=== PATIENT | female | born 1950 | race Caucasian/White ===

== ENCOUNTER 2019-02-23 09:18 | Inpatient (IN) | payer MEDICARE, OTHER ==
[~2019-02-23] VITALS: Ht 162.6 cm; Wt 104.7 kg
[2019-02-23] MEDS ORDERED: METF-960 PO (09:26)
[2019-02-23] MEDS ORDERED: FURO40 PO ×2 (09:26→15:04)
[2019-02-23] MEDS ORDERED: LOSA50TA64 PO (09:26)
[2019-02-23 09:40] LABS: GLUCOSE,POINT OF CARE 123 MG/DL (70-110)
[2019-02-23 10:38] LABS: BASOPHILS % (AUTO) 0.5 % (0.0-2.0); EOSINOPHILS % (AUTO) 6.2 % (1.0-6.0); HEMATOCRIT 35.1 % (36-46); HEMOGLOBIN 11.7 g/dL (12.0-16.0); LYMPHOCYTES # (AUTO) 1.4 K/uL (1.0-4.8); LYMPHOCYTES % (AUTO) 14.2 % (22.0-44.0); MEAN CORPUSCULAR HEMOGLOBIN 28.9 pg (26.0-34.0); MEAN CORPUSCULAR HGB CONC 33.3 G/dL (31.0-37.0); MEAN CORPUSCULAR VOLUME 87 fL (80-100); MONOCYTES # (AUTO) 0.7 K/uL (0.1-1.0); NEUTROPHILS # (AUTO) 6.9 K/uL (1.8-7.7); NEUTROPHILS % (AUTO) 72.1 % (40.0-70.0); PLATELET COUNT (AUTO) 266 K/uL (150-450); RED BLOOD CELL COUNT(AUTO) 4.04 MIL/uL (4.00-5.20); RED CELL DISTRIBUTION WIDTH 14.1 % (11.5-14.5)
[2019-02-23 10:49] LABS: CALCIUM, TOTAL 9.6 mg/dL (8.8-10.5); CREATININE 1.29 mg/dL (0.60-1.30)
[2019-02-23 10:55] LABS: ALBUMIN 3.3 g/dL (3.4-5.0); BILIRUBIN,TOTAL 0.4 mg/dL (0.1-1.0); TOTAL PROTEIN, SERUM 7.7 g/dL (6.4-8.2)
[2019-02-23 11:18] LABS: APPEARANCE,URINE CLOUDY (CLEAR); BILIRUBIN,URINE NEGATIVE (NEGATIVE); GLUCOSE, URINE (UA) NEGATIVE (NEGATIVE); KETONES,URINE NEGATIVE (NEGATIVE); LEUKOCYTE ESTERASE ,URINE SMALL (NEGATIVE); NITRATE,URINE POSITIVE (NEGATIVE); OCCULT BLOOD,URINE TRACE (NEGATIVE); PROTEIN,URINE NEGATIVE (NEGATIVE)
[2019-02-23 11:28] LABS: BACTERIA,URINE Moderate /HPF (None Seen); SQUAMOUS EPITHELIAL CELL,UR Few /LPF (None Seen)
[2019-02-23] MEDS ORDERED: CEPHALEXIN MONOHYDRATE 500 MG CAPSULE PO ONE (12:00)
[2019-02-23 14:21] VITALS: BP 110/64
[2019-02-23] MEDS ORDERED: METF-445 PO (15:04)
[2019-02-23] MEDS ORDERED: TRAZ-252 PO (15:04)
[2019-02-23] MEDS ORDERED: ATOR40TA28 PO (15:04)
[2019-02-23] MEDS ORDERED: CARV3 PO (15:04)
[2019-02-23] MEDS ORDERED: GABA-531 PO ×2 (15:04)
[2019-02-23] MEDS ORDERED: LOSA-30 PO (15:04)
[2019-02-23] MEDS ORDERED: DONE10TA8 PO (15:04)
[2019-02-23] MEDS ORDERED: ACETAMINOPHEN 650 MG/20.3 ML SOLUTION UDCUP PO PRN (15:15)
[2019-02-23] MEDS ORDERED: DEXTROSE 50%-WATER 25 GM/50 ML SYRINGE IVP PRN (15:30)
[2019-02-23] MEDS ORDERED: ACETAMINOPHEN 325 MG TABLET PO PRN ×2 (16:30→22:15)
[2019-02-23] MEDS ORDERED: SODIUM CHLORIDE 0.9% 500 ML IV ONE (17:01)
[2019-02-23] MEDS: CefTRIAXone 1 GM/DEXTROSE 50 ML IV SCH (17:07)
[2019-02-23] MEDS: INSULIN LISPRO 100 UNITS/ML SQ PRN ×2 (17:49→21:13)
[2019-02-23 19:30] LABS: GLUCOMETER DEV NAME(LOC) 4E.2; GLUCOSE,POINT OF CARE 145 MG/DL (70-110)
[2019-02-23 19:35] VITALS: BP 142/52
[2019-02-23] MEDS: DONEPEZIL HCL 10 MG TABLET PO SCH (21:00)
[2019-02-23] MEDS: ATORVASTATIN CALCIUM 40 MG TABLET PO SCH (21:02)
[2019-02-23] MEDS: CARVEDILOL 3.125 MG TABLET PO SCH (21:02)
[2019-02-23] MEDS: TraZODone HCL 50 MG TABLET PO SCH (21:03)
[2019-02-23] MEDS: FUROSEMIDE 40 MG TABLET PO SCH (21:03)
[2019-02-23] MEDS: GABAPENTIN 300 MG CAPSULE PO SCH (21:03)
[2019-02-23] MEDS ORDERED: IPRATROPIUM BROMIDE 0.5 MG/2.5 ML NEB SOLUTION NEB PRN (22:15)
[2019-02-23] MEDS ORDERED: MAGNESIUM HYDROXIDE SUSPENSION 30 ML UDCUP PO PRN (22:15)
[2019-02-23] MEDS ORDERED: ALBUTEROL SULFATE 2.5 MG/0.5 ML NEB SOLUTION NEB PRN (22:15)
[2019-02-23] MEDS ORDERED: ONDANSETRON HCL 4 MG/2 ML VIAL IVP PRN (22:15)
[2019-02-23] MEDS ORDERED: MORPHINE SULFATE 2 MG/ML SYRINGE IVP PRN (22:15)
[2019-02-23] MEDS ORDERED: HYDROCODONE/ACETAMINOPHEN 5-325 MG TABLET PO PRN (22:15)
[2019-02-23] MEDS ORDERED: ZOLPIDEM TARTRATE 5 MG TABLET PO PRN (22:15)
[2019-02-23] MEDS ORDERED: BISACODYL 10 MG RECTAL RECTAL SUPPOSITORY PR PRN (22:15)
[2019-02-23] MEDS: HEPARIN SODIUM,PORCINE 5,000 UNITS/ML VIAL SQ SCH (23:23)
[2019-02-23 23:25] VITALS: BP 112/43
[2019-02-24 04:50] VITALS: BP 136/67
[2019-02-24 08:06] VITALS: BP 141/54
[2019-02-24] MEDS: HEPARIN SODIUM,PORCINE 5,000 UNITS/ML VIAL SQ SCH ×3 (08:09→23:12)
[2019-02-24] MEDS: DOCUSATE SODIUM 100 MG CAPSULE PO SCH ×2 (08:09→20:47)
[2019-02-24] MEDS: GABAPENTIN 300 MG CAPSULE PO SCH ×2 (08:10→20:20)
[2019-02-24] MEDS: FUROSEMIDE 40 MG TABLET PO SCH ×2 (08:10→20:20)
[2019-02-24] MEDS: LOSARTAN POTASSIUM 50 MG TABLET PO SCH (08:10)
[2019-02-24] MEDS: CARVEDILOL 3.125 MG TABLET PO SCH ×2 (08:10→20:20)
[2019-02-24] MEDS: HYDROCHLOROTHIAZIDE 25 MG TABLET PO SCH (08:11)
[2019-02-24] MEDS: INSULIN LISPRO 100 UNITS/ML SQ PRN (11:26)
[2019-02-24 11:40] VITALS: BP 97/58
[2019-02-24 12:26] LABS: GLUCOMETER DEV NAME(LOC) 4E.2; GLUCOSE,POINT OF CARE 161 MG/DL (70-110)
[2019-02-24 12:26] LABS: GLUCOMETER DEV NAME(LOC) 4E.2; GLUCOSE,POINT OF CARE 143 MG/DL (70-110)
[2019-02-24 12:26] LABS: GLUCOMETER DEV NAME(LOC) 4E.2; GLUCOSE,POINT OF CARE 109 MG/DL (70-110)
[2019-02-24] MEDS: CefTRIAXone 1 GM/DEXTROSE 50 ML IV SCH (15:07)
[2019-02-24 16:13] VITALS: BP 121/63
[2019-02-24 20:07] VITALS: BP 127/64
[2019-02-24] MEDS: TraZODone HCL 50 MG TABLET PO SCH (20:20)
[2019-02-24] MEDS: ATORVASTATIN CALCIUM 40 MG TABLET PO SCH (20:20)
[2019-02-24] MEDS: DONEPEZIL HCL 10 MG TABLET PO SCH (20:47)
[2019-02-24] MEDS: NYSTATIN 15 GM POWDER BOTTLE TP SCH (20:48)
[2019-02-24] MEDS ORDERED: NYSTATIN 30 GM CREAM TP SCH (21:00)
[2019-02-24 23:13] VITALS: BP 135/67
[2019-02-25 05:32] VITALS: BP 127/54
[2019-02-25 07:39] VITALS: BP 129/69
[2019-02-25] MEDS: HEPARIN SODIUM,PORCINE 5,000 UNITS/ML VIAL SQ SCH ×3 (08:39→23:26)
[2019-02-25] MEDS: FUROSEMIDE 40 MG TABLET PO SCH ×2 (08:40→20:05)
[2019-02-25] MEDS: NYSTATIN 15 GM POWDER BOTTLE TP SCH ×2 (08:40→23:25)
[2019-02-25] MEDS: DOCUSATE SODIUM 100 MG CAPSULE PO SCH ×2 (08:40→21:00)
[2019-02-25] MEDS: HYDROCHLOROTHIAZIDE 25 MG TABLET PO SCH (08:40)
[2019-02-25] MEDS: CARVEDILOL 3.125 MG TABLET PO SCH ×2 (08:40→20:05)
[2019-02-25] MEDS: GABAPENTIN 300 MG CAPSULE PO SCH ×2 (08:40→20:09)
[2019-02-25] MEDS: LOSARTAN POTASSIUM 50 MG TABLET PO SCH (08:40)
[2019-02-25 08:46] LABS: BASOPHILS % (AUTO) 0.7 % (0.0-2.0); EOSINOPHILS % (AUTO) 7.4 % (1.0-6.0); HEMATOCRIT 36.1 % (36-46); LYMPHOCYTES # (AUTO) 1.9 K/uL (1.0-4.8); LYMPHOCYTES % (AUTO) 24.6 % (22.0-44.0); MEAN CORPUSCULAR HGB CONC 33.1 G/dL (31.0-37.0); MEAN CORPUSCULAR VOLUME 88 fL (80-100); MONOCYTES # (AUTO) 0.7 K/uL (0.1-1.0); MONOCYTES % (AUTO) 9.2 % (2.0-9.0); NEUTROPHILS # (AUTO) 4.4 K/uL (1.8-7.7); NEUTROPHILS % (AUTO) 58.1 % (40.0-70.0); PLATELET COUNT (AUTO) 238 K/uL (150-450); RED BLOOD CELL COUNT(AUTO) 4.13 MIL/uL (4.00-5.20); RED CELL DISTRIBUTION WIDTH 14.1 % (11.5-14.5)
[2019-02-25 08:53] LABS: ANION GAP 4 mmol/L (8-16); CALCIUM, TOTAL 9.7 mg/dL (8.8-10.5); CARBON DIOXIDE 34 mmol/L (22-29); CHLORIDE 98 mmol/L (98-107); CREATININE 0.85 mg/dL (0.60-1.30); GLOMERULAR FILTR. RATE CALC > 60 mL/min (>60); GLUCOSE,RANDOM 125 mg/dL (70-110); SODIUM SERUM 136 mmol/L (136-145); UREA NITROGEN, BLOOD 33 mg/dL (7-18)
[2019-02-25 08:59] LABS: ALANINE AMINOTRANSFERASE 17 U/L (12-78); ALBUMIN 3.1 g/dL (3.4-5.0); ALKALINE PHOSPHATASE 104 U/L (46-116); ASPARTATE AMINOTRANSFERASE 20 U/L (15-37); BILIRUBIN,TOTAL 0.4 mg/dL (0.1-1.0); TOTAL PROTEIN, SERUM 7.8 g/dL (6.4-8.2)
[2019-02-25 09:00] VITALS: BP 135/62
[2019-02-25 12:06] LABS: GLUCOMETER DEV NAME(LOC) 4E.2; GLUCOSE,POINT OF CARE 114 MG/DL (70-110)
[2019-02-25 12:06] LABS: GLUCOMETER DEV NAME(LOC) 4E.2; GLUCOSE,POINT OF CARE 131 MG/DL (70-110)
[2019-02-25 12:07] LABS: GLUCOMETER DEV NAME(LOC) 4E.2; GLUCOSE,POINT OF CARE 135 MG/DL (70-110)
[2019-02-25 12:07] LABS: GLUCOMETER DEV NAME(LOC) 4E.2; GLUCOSE,POINT OF CARE 109 MG/DL (70-110)
[2019-02-25] MEDS: CefTRIAXone 1 GM/DEXTROSE 50 ML IV SCH (17:33)
[2019-02-25 19:49] VITALS: BP 129/55
[2019-02-25] MEDS: TraZODone HCL 50 MG TABLET PO SCH (20:05)
[2019-02-25] MEDS: ATORVASTATIN CALCIUM 40 MG TABLET PO SCH (20:06)
[2019-02-25] MEDS: DONEPEZIL HCL 10 MG TABLET PO SCH (21:00)
[2019-02-25 21:45] LABS: GLUCOMETER DEV NAME(LOC) 6N.2; GLUCOSE,POINT OF CARE 106 MG/DL (70-110)
[2019-02-25] MEDS: INSULIN LISPRO 100 UNITS/ML SQ PRN (21:55)
[2019-02-25 23:37] VITALS: BP 120/55
[2019-02-26 04:37] VITALS: BP 129/65
[2019-02-26 07:16] VITALS: BP 136/64
[2019-02-26] MEDS: GABAPENTIN 300 MG CAPSULE PO SCH (07:53)
[2019-02-26] MEDS: FUROSEMIDE 40 MG TABLET PO SCH (07:54)
[2019-02-26] MEDS: LOSARTAN POTASSIUM 50 MG TABLET PO SCH (07:54)
[2019-02-26] MEDS: HYDROCHLOROTHIAZIDE 25 MG TABLET PO SCH (07:54)
[2019-02-26] MEDS: CARVEDILOL 3.125 MG TABLET PO SCH (07:54)
[2019-02-26] MEDS: HEPARIN SODIUM,PORCINE 5,000 UNITS/ML VIAL SQ SCH ×2 (07:56→15:51)
[2019-02-26] MEDS: NYSTATIN 15 GM POWDER BOTTLE TP SCH (07:56)
[2019-02-26] MEDS: DOCUSATE SODIUM 100 MG CAPSULE PO SCH (07:57)
[2019-02-26 11:11] LABS: GLUCOMETER DEV NAME(LOC) 4E.2; GLUCOSE,POINT OF CARE 151 MG/DL (70-110)
[2019-02-26 11:11] LABS: GLUCOMETER DEV NAME(LOC) 4E.2; GLUCOSE,POINT OF CARE 133 MG/DL (70-110)
[2019-02-26 11:13] VITALS: BP 146/75
[2019-02-26 11:26] LABS: GLUCOMETER DEV NAME(LOC) 4E.2; GLUCOSE,POINT OF CARE 144 MG/DL (70-110)
[2019-02-26] MEDS: INSULIN LISPRO 100 UNITS/ML SQ PRN (12:14)
[2019-02-26 15:46] VITALS: BP 139/70
[2019-02-26] MEDS: CefTRIAXone 1 GM/DEXTROSE 50 ML IV SCH (15:51)
== END 2019-02-26 17:20 | DRG 690 ==
LOC: EMS 09:19 → 4E 13:14
PROVIDERS: ADMIT Hospitalist; ATTEND Hospitalist
DX: N39.0 Urinary tract infection, site not specified (principal); E11.9 Type 2 diabetes mellitus without complications; I10 Essential (primary) hypertension; E78.5 Hyperlipidemia, unspecified; E66.9 Obesity, unspecified; Z68.39 Body mass index [BMI] 39.0-39.9, adult; B36.9 Superficial mycosis, unspecified
CPT/HCPCS: 70450; 87081; 87086; 97116; 97162; 97166; 97530; 97535; G0378; J0696; J1644; J7040

== ENCOUNTER 2019-10-14 16:27 | Emergency (ER) | payer MEDICARE, OTHER ==
[~2019-10-14] VITALS: Ht 162.6 cm; Wt 104.5 kg
[~2019-10-14 16:27] MED LIST: ATOR40TA28 PO; CARV3 PO; DONE10TA8 PO; FURO40 PO; GABA-1181 PO; LOSA-30 PO; METF-445 PO; TRAZ-252 PO
[2019-10-14 17:26] LABS: BASOPHILS % (AUTO) 0.9 % (0.0-2.0); EOSINOPHILS % (AUTO) 5.5 % (1.0-6.0); HEMATOCRIT 38.9 % (36-46); HEMOGLOBIN 12.7 g/dL (12.0-16.0); LYMPHOCYTES # (AUTO) 1.9 K/uL (1.0-4.8); LYMPHOCYTES % (AUTO) 23.8 % (22.0-44.0); MEAN CORPUSCULAR HEMOGLOBIN 27.5 pg (26.0-34.0); MEAN CORPUSCULAR HGB CONC 32.5 G/dL (31.0-37.0); MEAN CORPUSCULAR VOLUME 85 fL (80-100); MONOCYTES # (AUTO) 0.7 K/uL (0.1-1.0); MONOCYTES % (AUTO) 9.1 % (2.0-9.0); NEUTROPHILS # (AUTO) 4.7 K/uL (1.8-7.7); NEUTROPHILS % (AUTO) 60.7 % (40.0-70.0); PLATELET COUNT (AUTO) 241 K/uL (150-450); RED CELL DISTRIBUTION WIDTH 15.9 % (11.5-14.5)
[2019-10-14 17:56] LABS: ANION GAP 6 mmol/L (8-16); B-TYPE NATRIURETIC PEPTIDE 86 pg/mL (0-100); CALCIUM, TOTAL 9.4 mg/dL (8.8-10.5); CARBON DIOXIDE 33 mmol/L (22-29); CHLORIDE 101 mmol/L (98-107); GLOMERULAR FILTR. RATE CALC > 60 mL/min (>60); GLUCOSE,RANDOM 115 mg/dL (70-110); POTASSIUM 3.7 mmol/L (3.5-5.1); SODIUM SERUM 140 mmol/L (136-145); UREA NITROGEN, BLOOD 22 mg/dL (7-18)
[2019-10-14 18:10] LABS: ALANINE AMINOTRANSFERASE 23 U/L (12-78); ALBUMIN 3.7 g/dL (3.4-5.0); ALKALINE PHOSPHATASE 111 U/L (46-116); ASPARTATE AMINOTRANSFERASE 19 U/L (15-37); BILIRUBIN,TOTAL 0.4 mg/dL (0.1-1.0); CREATINE KINASE, TOTAL ONLY 150 U/L (26-192); TOTAL PROTEIN, SERUM 8.1 g/dL (6.4-8.2)
[2019-10-14] MEDS ORDERED: ACETAMINOPHEN 325 MG TABLET PO ONE (18:30)
[2019-10-14] MEDS ORDERED: IBUPROFEN 400 MG TABLET PO ONE (18:30)
[2019-10-14 20:20] VITALS: BP 153/71
== END 2019-10-14 20:53 | disposition home or self-care (01) ==
LOC: EMS 16:27
DX: R07.9 Chest pain, unspecified (principal); M79.661 Pain in right lower leg; M79.662 Pain in left lower leg; E11.9 Type 2 diabetes mellitus without complications; I10 Essential (primary) hypertension; Z79.84 Long term (current) use of oral hypoglycemic drugs; Z79.899 Other long term (current) drug therapy
CPT/HCPCS: 93005